=== PATIENT | male | born 1955 | race Caucasian/White ===

== ENCOUNTER 2017-02-20 10:57 | Day surgery (SDC) | payer BC ==
[2017-02-13 12:25] LABS: HEMATOCRIT 43.5 % (40.0-51.0); HEMOGLOBIN 15.3 g/dL (13.6-17.8)
[2017-02-13 12:27] LABS: BUN (BLOOD UREA NITROGEN) 12 MG/DL (6-23); CALCIUM, SERUM 9.9 MG/DL (8.5-10.4); CHLORIDE, SERUM 102 MMOL/L (96-112); CO2 (CARBON DIOXIDE) 30 MMOL/L (24-34); CREATININE 0.88 MG/DL (0.70-1.30); GFR AFRICAN AMERICAN 107 ML/MIN (>=60); GFR NON AFRICAN AMERICAN 93 ML/MIN (>=60); GLUCOSE, SERUM 107 MG/DL (60-99); POTASSIUM, SERUM 3.6 MMOL/L (3.5-5.3); SODIUM, SERUM 141 MMOL/L (135-148)
--- NOTE | ~2017-02-20 | OP ---
Record Of Operation [facility] [address] [place]. 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 SURGEON: Juan Daniel Ellis M.D. ANESTHESIA: General. COMPLICATIONS: None. COUNTS: All counts correct following the procedure. ESTIMATED BLOOD LOSS: Minimal. PREOPERATIVE INFORMED CONSENT: We discussed risks and benefits of surgery including but not limited to bleeding, infection, possible recurrence of the lesion requiring repeat laser procedure. He understands the risks and benefits of surgery and consent is on the chart. PROCEDURE IN DETAIL: The patient was brought to the operating suite and placed on the operating table in supine position. General endotracheal anesthesia was initiated without incident using the laser endotracheal tube. Bite guard was placed in the upper teeth and the Dedo laryngoscope was carefully inserted into the oral cavity and used to inspect the oral cavity, oropharynx, and in the left lingual sulcus, there was noted to be a significant area of leukoplakia and keratosis in the left posterior lingual sulcus. This was biopsied several times using the large biopsy forceps. The specimen was placed in formalin and sent for permanent pathology. There was minimal bleeding. There was an area of leukoplakia also along the left soft palate. The lingual sulcus was generously vaporized or cauterized using the OmniGuide. CO2 laser set at 8 bautista and continuous then the Dedo laryngoscope was then removed. The Joselito-Josue retractor was inserted into the oral cavity and then the left soft palate was generously cauterized in the area where the leukoplakia and erythroplakia was located until the entire area of erythroplakia and leukoplakia had been vaporized. There was minimal bleeding. The Joselito-Josue retractor was removed. The patient was awakened from anesthesia and taken to the recovery room in stable condition. SOWMYA/JES Juan Daniel Ellis M.D. Record Of [address] [address] NAME: VIJAYA FERNANDEZ : 55 STATUS : [facility] PAT#: [id number] AGE: 61 ADM/REG DATE : 02/20/17 MR#: [id number] REPORT SERV DATE: 02/20/17 DICTATED BY: JUAN DANIEL ELLIS DATE: 02/20/17 REPORT STATUS : Draft TRANSCRIBED BY: JES DATE: 02/20/17 / [id number] CC: Franck Armenta M.D.
[~2017-02-20 10:57] MED LIST: ADVAIR250; ATV.5; LIPITOR10 PO; NORV5 PO; SPIRIVA RESPIMAT INH; TEKTURNA HCT1 TA3 PO; TRICOR145 PO
== END 2017-02-20 17:55 | disposition home or self-care (01) ==
LOC: SDC 10:57
PROVIDERS: Otolaryngology
PROC: 0CBM8ZX Excision of Pharynx, Via Natural or Artificial Opening Endoscopic, Diagnostic (ICD-10-PCS; principal; 2017-02-20 12:00)
DX: D00.08 Carcinoma in situ of pharynx (principal); I10 Essential (primary) hypertension; J44.9 Chronic obstructive pulmonary disease, unspecified; G47.33 Obstructive sleep apnea (adult) (pediatric); F17.200 Nicotine dependence, unspecified, uncomplicated
CPT/HCPCS: 80048; 85014; 85018; 88305; 93005; J2250; J2270; J2405; J2710; J3010